=== PATIENT | female | born 2000 | race Caucasian/White ===

== ENCOUNTER 2022-09-21 03:35 | Emergency (ER) | payer OTHER ==
[~2022-09-21] VITALS: Ht 149.9 cm; Wt 63.6 kg
[2022-09-21 03:46] VITALS: BP 139/62
== END 2022-09-21 04:30 | disposition left against medical advice (07) ==
LOC: EMS 03:37
DX: Z53.21 Procedure and treatment not carried out due to patient leaving prior to being seen by health care provider (principal)